=== PATIENT | male | born 1955 | race Caucasian/White ===

== ENCOUNTER → 2016-12-20 | Day surgery (SDC) | payer OTHER ==
[~2016-12-20] MED LIST: ACETAMINOPHEN/HYDROcodone 325 MG/5 MG TAB ONE; BACITRACIN IM FOR SOLN 50,000 UNIT VIAL ONE; BUPIVACAINE/EPINEPHRINE 0.25% 50 ML VIAL ONE; GENTAMICIN SULFATE 80 MG/2 ML VIAL ONE; KETOROLAC TROMETHAMINE 30 MG/ML (IVP) VIAL IV PUSH ONE; LACTATED RINGER'S 1000 ML INJ 1,000 ML ONE; MIDAZOLAM HCL 2 MG/2 ML VIAL ONE; ONDANSETRON HCL 4 MG/2 ML VIAL IV PUSH ONE; PROPOFOL 200 MG/20 ML AMP IV ONE; SODIUM CHLORIDE 0.9% 20 ML VIAL ONE; VANCOMYCIN HCL 1000 MG VIAL ONE; ceFAZolin 2 GM PREMIX 50 ML ONE; ceFAZolin INJ 1,000 MG VIAL ONE
--- NOTE | 2016-12-20 08:58 | TN ---
cc: BRITNI MAGALLANES DATE OF SURGERY: December 20, 2016 PREOPERATIVE DIAGNOSIS 1. Right knee medial compartment osteoarthritis. POSTOPERATIVE DIAGNOSIS 1. Right knee medial compartment osteoarthritis. PROCEDURE Right knee medial unicondylar arthroplasty, partial patellectomy. SURGEON Aleks Magallanes MD [employer] Gia Magallanes MD, [place], PAC SPECIMEN None. ESTIMATED BLOOD LOSS Minimum. COMPLICATIONS None. ANESTHESIA General. DRAIN One. TOURNIQUET TIME 49 minutes at 250 mmHg. CONDITION Stable. PLAN OF ACTIVITY Per orders. PROCEDURE The patient was brought into the operating room and had satisfactory anesthesia by Dr. Flores, Department of Anesthesia. The right lower extremity was prepped and draped in usual sterile manner. The extremity was exsanguinated by Willard wrap and tourniquet was inflated to 250 mmHg. Small anterior medial exposure of the knee was made. All bleeders were anticoagulated. Primary capsulotomy was performed. 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 The remaining portion of the medial meniscus was removed. The anterior cruciate ligament was preserved. Oscillating saw was used to perform a partial patellectomy to remove in the sagittal plane the medial facette of the patella. Using the [employer]el[employer] unicondylar arthroplasty system, guide was used for the femur to remove approximately 7 mm posterior condyle, proximal tibia was prepared to accept a #2 6.5 mm tibial component using a 5 mm bur. The distal femur was prepared to accept a #2 right medial femoral component. Trial reduction was made. Patient was found to have excellent balance with both flexion/extension. All trial components were removed in preparation for cementing. One package of Biomet high viscosity bone cement was used. First the tibial component was cemented followed by the femoral component. This was #2 tibia, 6.5 mm height tibial component and #2 right medial femoral component. All excess bone cement was removed and the bone cement was allowed to harden for 12 minutes. The wound was irrigated with copious amounts of sterile saline. The wound itself was dry, it was covered over with eighth inch Hemovac drain. The capsule was repaired using #2 Tycron suture, subcutaneous layer with 2-0 Vicryl and skin was approximated with running subcuticular 3-0 Vicryl and Steri-Strips. Sterile dressing were applied. The patient tolerated the procedure well and arrived in the recovery room in stable and satisfactory condition. MD BRONSON Beltran/SILVIA /8:27 AM /8:33 AM
== END | disposition home or self-care (01) ==
LOC: ESDC 06:13
PROVIDERS: ATTEND Orthopaedic Surgery Orthopaedic Surgery of the Spine
DX: M17.11 Unilateral primary osteoarthritis, right knee (principal)
CPT/HCPCS: 01400; 27446; C1776; J0690; J1580; J1885; J2250; J2405; J3010; J3370; J7120